=== PATIENT | male | born 1955 | race Asian ===

== ENCOUNTER → 2016-09-23 | Outpatient (CLI) | payer OTHER ==
[2016-09-23 07:48] LABS: BASOPHIL % 0.5 % (0-2); PLATELET COUNT 225 x10^3mcL (130-400); RED CELL DISTRIBUTION WIDTH 13.6 % (11.5-14.5)
[2016-09-23 07:53] LABS: UA SPECIFIC GRAVITY <=1.005 (1.005-1.035); microscopic required? YES; urine erythrocyte NEGATIVE (NEGATIVE)
[2016-09-23 08:17] LABS: ALKALINE PHOSPHATASE 71 U/L (46-116); ALT/SGPT 33 U/L (16-63); AST/SGOT 20 U/L (15-37); BILIRUBIN TOTAL 1.27 mg/dL (0.20-1.00); CARBON DIOXIDE 26.9 mmol/L (21-32); CHLORIDE SERUM 101 mmol/L (98-107); CREATININE SERUM 1.4 mg/dL (0.7-1.3); GFR1 55 mL/min; GLUCOSE SERUM 130 mg/dL (74-106); HDL CHOLESTEROL 51 mg/dL (40-60); POTASSIUM SERUM 4.7 mmol/L (3.5-5.1); SODIUM SERUM 137 mmol/L (136-145)
[2016-09-23 08:24] LABS: CHOLESTEROL 231 mg/dL (<200); CHOLESTEROL/HDL RATIO 4.5; TOTAL PROTEIN, SERUM 8.4 g/dL (6.4-8.2); TRIGLYCERIDES 322 mg/dL (<150)
== END | disposition home or self-care (01) ==
LOC: LB 06:57
PROVIDERS: Family Medicine Geriatric Medicine
DX: Z13.228 Encounter for screening for other metabolic disorders (principal); Z12.11 Encounter for screening for malignant neoplasm of colon; Z12.5 Encounter for screening for malignant neoplasm of prostate; Z13.0 Encounter for screening for diseases of the blood and blood-forming organs and certain disorders involving the immune mechanism; Z13.220 Encounter for screening for lipoid disorders; Z13.29 Encounter for screening for other suspected endocrine disorder
CPT/HCPCS: 84153